=== PATIENT | female | born 1960 | race Caucasian/White ===

== ENCOUNTER 2017-01-19 13:04 | Emergency (ER) | payer BC ==
[2017-01-19 13:29] VITALS: BP 146/82; BMI 30.2
[2017-01-19] MEDS ORDERED: ADACEL TDaP IM ONE ×2 (14:04→14:06)
[2017-01-19] MEDS ORDERED: XYLOCAINE 1 % (PLAIN) ONE (14:16)
[2017-01-19] MEDS ORDERED: BACITRACIN ZINC ONE (14:40)
--- NOTE | 2017-01-19 15:10 | DR.GENAD ---
HPI - PCP Primary Care Physician: rosalina henning - Complaint/Symptoms Chief Complaint:: pt cut thumb with knife while cutting frozen biscuits Self Treatment fo Chief Complaint: n/a - Source History Provided: Patient - Mode of Arrival Mode of Arrival: Ambulatory - Timing Onset of Chief Complaint: 01/19/17 PMH - PMH Past Medical History: Yes Past Medical History: Hypertension Past Medical History Comment: high cholesterol Past Surgical History: Yes Surgical History: Cholecystectomy, Hysterectomy, Mastectomy - Family History History of Family Medical Conditions: Yes Family Medical History: [place] - Social History Does patient currently use any type of tobacco product: No Have you used tobacco products in the last 12 months: No Type of Tobacco Use: None Does any household member use tobacco: No Do you use any recreational Drugs:: No - infectious screening In the last 2 months have you had wt loss of >10#?: NO Have you had fever, night sweats or hemotysis?: No Have you traveled outside the country in the last 6 months?: No Isolation: Standard ROS - Review of Systems Constitutional: No Symptoms Reported Eyes: No Symptoms Reported ENTM: No Symptoms Reported Respiratoy: No Symptoms Reported Cardiovascular: No Symptoms Reported Gastrointestinal/Abdominal: No Symptoms Reported Genitourinary: No Symptoms Reported Neurological: No Symptoms Reported Musculoskeletal: Other (thumb left cut) Integumentary: No Symptoms Reported Hematologic/Lymphatic: No Symptoms Reported Endocrine: No Symptoms Reported Psychiatric: No Symptoms Reported All Other Systems: Reviewed and Negative PE - Vital Signs Vitals: Temperature 98.7 F Pulse Rate 71 Respiratory Rate 20 Blood Pressure 146/82 O2 Sat by Pulse Oximetry 100 - General Limitations: No Limitations General Appearance: Alert, In No Apparent Distress - Head Head Exam: Normal Inspection, Atraumatic - Eyes Eye exam: Normal Appearance, PERRL, EOMI - ENT ENT Exam: Normal Exam External Ear Exam: Normal External Inspection TM/Canal Exam: Bilateral Normal Nose Exam: Normal Nose Exam Mouth Exam: Normal Inspection Throat Exam: Normal Inspection - Neck Neck Exam: Normal Inspection - Chest Chest Inspection: Normal Inspection - Respiratory Respiratory Exam: Normal Lung Sounds Bilat Respiratory Exam: Bilateral Clear to Auscultation - Cardiovascular Cardiovascular Exam: Regular Rate - Abdominal Exam Abdominal Exam: Normal Inspection Abdominal Tenderness: negative: RUQ, RLQ, LUQ, LLQ, Epigastrium, Suprapubic, Diffuse, Mild, Moderate, Severe, Other - Extremities Extremities Exam: Other (superficial laceration of volar surface of left hand 3cm) - Back Back Exam: Normal Inspection - Neurologic Neurological Exam: Alert, Oriented X3, CN II-XII Intact - Psychiatric Psychiatric Exam: Normal Affect - Skin Skin Exam: Warm, Dry, Intact Procedures - Laceration/Wound Repair Left Thumb Wound Length (cm): 3 Wound's Depth, Shape: Superficial, Linear Wound Explored: clean Betadine Prep?: Yes Anesthesia: 1% Lidocaine Wound Repaired With: sutures Suture Size/Type: 6:0, Prolene Number of Sutures: 9 Layer Closure?: No - Diagnosis Discharge Problem: Laceration of thumb, left Qualifiers: Encounter type: initial encounter Qualified Code(s): S61.012A - Laceration without foreign body of left thumb without damage to nail, initial encounter - Discharge Plan Condition: Stable - Follow ups/Referrals Follow ups/Referrals: NFD,None [Primary Care Provider] - 3 days - Instructions
== END 2017-01-19 15:19 | disposition home or self-care (01) ==
LOC: ER 13:04
PROC: 0XQM0ZZ Repair Left Thumb, Open Approach (ICD-10-PCS; principal; 2017-01-19)
DX: S61.012A Laceration without foreign body of left thumb without damage to nail, initial encounter (principal); W26.0XXA Contact with knife, initial encounter; Y92.9 Unspecified place or not applicable
CPT/HCPCS: 90471; 99282; J2001